=== PATIENT | female | born 1990 | race Caucasian/White ===

== ENCOUNTER 2022-05-15 16:15 | Emergency (ER) | payer BC, OTHER ==
[~2022-05-15] VITALS: Ht 152.4 cm; Wt 54.4 kg
--- NOTE | 2022-05-15 16:34 | NUR ---
AT BEDSIDE FOR EVALUATION. URINE SPECIMEN SENT TO LAB PER MD ORDER.
[2022-05-15 16:47] LABS: *BILIRUBIN,URIN NEGATIVE (NEGATIVE); *BLOOD, URINE NEGATIVE (NEGATIVE); *CLARITY,URINE CLEAR (CLEAR); *COLOR,URINE YELLOW (YELLOW); *KETONES,URINE NEGATIVE (NEGATIVE); *UROBILINOGEN,URINE 0.2 E.U./dl (NORMAL); HEMATOCRIT 41.5 % (31.2-41.9); LEUKOCYTE ESTERASE ,URINE NEGATIVE (NEGATIVE); MEAN CORPUSCULAR VOLUME 87.1 fL (75.5-95.3); NITRITE, URINE NEGATIVE (NEGATIVE); PH,URINE 6.5 (5.0-8.0); PLATELET COUNT (AUTO) 230 K/uL (179-408); UGLUCOSE NEGATIVE (NEGATIVE)
[2022-05-15 16:53] LABS: CREATININE 0.6 mg/dL (0.6-1.3); POTASSIUM 3.9 mmol/L (3.5-5.1)
[2022-05-15 17:05] LABS: BILIRUBIN,TOTAL 0.3 mg/dL (0.2-1.0); TOTAL PROTEIN, SERUM 8.3 g/dL (6.4-8.2)
--- NOTE | 2022-05-15 17:40 | NUR ---
Patient discharged to home in stable condition with brother. A/O x 4. NAD noted. Ambulatory with a steady gait. All belongings with patient. Written and verbal after care instructions given. Patient verbalizes understanding of instructions. Stressed follow up or return to ER for worsening s/s.
[2022-05-15 18:24] VITALS: BP 125/77
== END 2022-05-15 17:40 | disposition home or self-care (01) ==
LOC: ER 16:15
DX: R55 Syncope and collapse (principal)
CPT/HCPCS: 36415; 84484; 85025; 93005; A4663